=== PATIENT | male | born 1985 | race Hispanic/Latino ===

== ENCOUNTER 2018-08-27 08:15 | Emergency (ER) | payer BC, OTHER ==
[2018-08-27] MEDS ORDERED: LIDOCAINE HCL-MPF 1% 2ML VIAL ONE (08:31)
[2018-08-27] MEDS ORDERED: DEXAMETHASONE SOD PHOSPHATE 10MG/ML 1ML VIAL ONE (08:31)
[2018-08-27] MEDS ORDERED: ONDANSETRON ODT 4 MG TAB ONE (08:32)
[2018-08-27] MEDS ORDERED: CEFTRIAXONE SODIUM 1 GM ONE (08:32)
== END 2018-08-27 10:01 | disposition home or self-care (01) ==
LOC: EDH 08:15
DX: J02.9 Acute pharyngitis, unspecified (principal); Z88.5 Allergy status to narcotic agent; Z90.49 Acquired absence of other specified parts of digestive tract
CPT/HCPCS: 87804 ×2; 87880; 96372 ×2; 99284; J0696; J1100; J3490